=== PATIENT | male | born 1940 | race Caucasian/White ===

== ENCOUNTER 2024-05-12 10:53 | Emergency (ER) | payer MEDICARE ==
[~2024-05-12] VITALS: Ht 182.8 cm; Wt 86.2 kg
[~2024-05-12 10:53] MED LIST: ALLOPURINOL100 MG PO; NEXIUM40 MG PO; NORVASC5 MG PO; PRADAXA150 MG PO; TOPROL XL25 MG PO; XANAX0.5 MG PO
[2024-05-12 11:32] LABS: BASO % 0.3 % (0.0-1.0); EOS % 0.2 % (1.0-4.0); HEMATOCRIT 46.7 % (42.0-52.0); LYMPH # 0.8 10*3/uL (1.3-4.4); LYMPH % 7.1 % (27.0-41.0); MEAN CORPUSCULAR HGB 31.6 pg (27.0-31.0); MEAN CORPUSCULAR HGB CONC 35.1 g/dl (33.0-37.0); MEAN PLATELET VOLUME 10.7 fl (9.6-12.3); MONO # 0.6 10*3/uL (0.1-1.0); NEUT # 10.1 10*3/uL (2.3-7.9); PLATELET COUNT AUTOMATED 161 10*3/uL (130-400); RED BLOOD COUNT 5.19 10*6/uL (4.50-5.90); WHITE BLOOD COUNT 11.7 10*3/uL (4.8-10.8)
[2024-05-12 11:43] LABS: ACT PARTIAL THROMBO TIME 28.8 SECONDS (20.0-32.1)
[2024-05-12 11:54] LABS: ALKALINE PHOSPHATASE 87 U/L (46-116); BUN 11 mg/dl (9-23); CHLORIDE 105 mmol/L (98-107); POTASSIUM 3.8 mmol/L (3.4-5.1); TOTAL PROTEIN 6.5 gm/dL (6.0-8.0)
[2024-05-12 11:58] LABS: ETHYL ALCOHOL < 3.0 mg/dl (<3); SGPT/ALT < 7 U/L (5-49)
[2024-05-12] MEDS ORDERED: niCARdipine hydrochloride 25 MG in SODIUM CHLORIDE 0.9% 240 ML IV ONE (12:15)
[2024-05-12 12:36] VITALS: BP 158/95
== END 2024-05-12 12:53 | disposition short-term general hospital (02) ==
LOC: ED 10:53
PROVIDERS: Emergency Medicine
DX: I61.9 Nontraumatic intracerebral hemorrhage, unspecified (principal); I48.91 Unspecified atrial fibrillation; Z87.442 Personal history of urinary calculi; Z98.890 Other specified postprocedural states